=== PATIENT | male | born 1965 | race Caucasian/White ===

== ENCOUNTER 2019-08-18 15:57 | Inpatient (IN) | payer OTHER ==
[~2019-08-18] VITALS: Ht 185.4 cm; Wt 151.4 kg
[~2019-08-18 15:57] MED LIST: ACETAMINOPHEN325 M1 PO; ALPRAZOLAM ER1 MG PO; ALPRAZOLAM PO; AZITHROMYCIN 2250 MG PO; B COMPLEX-VITA1 EACH PO; KEFLEX500 MG PO; KRILL OIL500 MG PO; MULTIVITAMINS PO; NICOTINE TRANSDE7 MG TD; NORCO 5-325 TA1 EACH PO; PREDNISONE 20 M20 M1 PO; SOMA250 MG PO; TRAMADOL 50 MG50 MG PO; VITAMIN D-32000 UNIT PO
[2019-08-18 16:34] VITALS: BP 127/73
[2019-08-18 19:02] LABS: BASOPHILS 0.5 % (0.0-2.0); EOSINOPHILS 0.2 % (0.0-3.0); HEMATOCRIT 44.8 % (42.0-52.0); HEMOGLOBIN 14.8 gm/dL (14.0-18.0); LYMPHOCYTES 15.1 % (24.0-44.0); MCH 27.9 pg (26.0-34.0); MCV 84.6 fL (80.0-100.0); MONOCYTES 8.6 % (1.0-8.0); PLATELET COUNT 223 thou/uL (150-400); POLYS 75.6 % (36.0-66.0); RBC 5.29 mil/uL (4.50-6.00); RDW 14.3 % (10.5-14.5); WBC 14.5 thou/uL (4.0-11.0)
[2019-08-18 19:06] LABS: CALCIUM 9.1 mg/dL (8.5-10.1); POTASSIUM 3.4 mmol/L (3.5-5.1)
[2019-08-18 22:03] VITALS: BP 146/86
[2019-08-18 22:08] LABS: URINE BILIRUBIN NEGATIVE (Negative); URINE BLOOD NEGATIVE (Negative); URINE CLARITY CLEAR; URINE COLOR YELLOW; URINE GLUCOSE-RANDOM* NEGATIVE (Negative); URINE KETONES NEGATIVE (Negative); URINE LEUKOCYTES-REFLEX NEGATIVE (Negative); URINE NITRITE-REFLEX NEGATIVE (Negative); URINE PROTEIN (DIPSTICK) NEGATIVE (Negative); URINE UROBILINOGEN 0.2 E.U./dl (0.2-1.0)
[2019-08-18 22:31] VITALS: BP 125/77
[2019-08-18 23:23] VITALS: BP 122/89
[2019-08-19 04:36] VITALS: BP 147/86
--- NOTE | 2019-08-19 08:04 | NUR ---
PT ADMITTED AT ABOUT 2330 08/19. ALERT AND ORIENTED. VITALS STABLE. BLISTERS ON THE LE, AND GROIN REDNESS NOTED. ON ANTIBIOTIC FOR CELLULITIS. PT REPORTS HISTORY OF SLEEP APNEA. NOTED SUSTAINED RAPID HEART RATE >120, ASYMPTOMATIC AND RELATED TO SLEEP APNEA. DR THOMPSON NOTIFIED. NO ORDERS RECEIVED. INSTEAD RECOMMENDED TO CONTINUE MONITORING PT. HR MORE CONTROLLED WHILE PT IS AWAKE. MORPHINE PRN GIVEN FOR PAIN. WILL CONTINUE TO FOLLOW PLAN OF CARE.
[2019-08-19 08:20] VITALS: BP 122/74
--- NOTE | 2019-08-19 12:21 | NUR ---
ASSUMED CARE AT 0700, SHIFT ASSESSMENT DONE, MEDS GIVEN, VSS. REPORTED PAIN, PRN PAIN MEDS GIVEN. DR LOZADA CALLED ABOUT CONSULT. RECEIVING IV ANTIBIOTICS. WILL CONTINUE TO ASSESS AND ASSIST WITH ADLs NEEDED.
[2019-08-19 12:30] VITALS: BP 127/67
[2019-08-19] MEDS ORDERED: KLONOPIN1 MG PO (12:43)
[2019-08-19] MEDS ORDERED: TIZANIDINE HCL 22 M1 PO (12:44)
[2019-08-19] MEDS ORDERED: SERTRALINE HCL100 MG (12:44)
[2019-08-19] MEDS ORDERED: TRAZODONE 150150 M1 PO (12:45)
[2019-08-19] MEDS ORDERED: LIPITOR10 MG PO (12:45)
[2019-08-19 16:56] VITALS: BP 134/69
--- NOTE | 2019-08-19 18:29 | NUR ---
DR YEPEZ DID A BEDSIDE I&D, TOLERATED PROCEDURE WELL. UP IN THE CHAIR. GAUZE AND ABD DRESSING ON THE SITES, RIGHT GROIN AND THIGH. WILL CONTINUE TO ASSESS AND ASSIST WITH ADLs NEEDED.
[2019-08-19 19:41] VITALS: BP 122/73
[2019-08-20 04:09] VITALS: BP 125/52
--- NOTE | 2019-08-20 04:57 | NUR ---
ASSUMED PT CARE AT 1900. PT IS ALERT AND ORIENTED. FAMILY AT BEDSIDE. NO SIGN OF DISTRES NOTED IN PT. PT IS STABLE. ASSESSMENT COMPLETED AND DOCUMENTED. RIGHT GROIN SITE INTACT. DRESSING CHANGE DONE ON GROIN SITE. DOMONIQUE MED ADMINISTERED REQUESTED [place] PATIENT. SCHEDULED MEDS ADMINISTERED TO PT. NO SIGN OF DISTRESS NOTED. NO FURTHER NEEDS AT THIS TIME
[2019-08-20 04:58] LABS: CALCIUM 8.3 mg/dL (8.5-10.1); CREATININE 0.9 mg/dL (0.7-1.3); POTASSIUM 3.3 mmol/L (3.5-5.1)
[2019-08-20 05:42] LABS: HEMATOCRIT 39.8 % (42.0-52.0); HEMOGLOBIN 13.2 gm/dL (14.0-18.0); MCH 28.3 pg (26.0-34.0); MCHC 33.1 g/dL (28.0-37.0); MCV 85.4 fL (80.0-100.0); RBC 4.66 mil/uL (4.50-6.00); WBC 10.4 thou/uL (4.0-11.0)
[2019-08-20 07:49] VITALS: BP 112/68
--- NOTE | 2019-08-20 13:32 | H ---
[facility] [place] [address] HISTORY AND PHYSICAL Name: KELLY MUELLER Room #: 208-P [facility] IN M.R.#: [id number] Admission: 08/18/19 Attend Phys: Tapan Alford MD Discharge: Date of : 67 Report #: [id number] THIS REPORT FOR: //name// CC: Mitch Alford DATE OF SERVICE: 08/18/2019 CHIEF COMPLAINT: Pain and swelling in the right groin and thigh. HISTORY OF PRESENT ILLNESS: The patient is a 53-year-old gentleman who was admitted through the Emergency Room with pain, redness, and rash developing in the right groin, spreading to his right leg, right inner thigh. He had a temperature of 102 yesterday. His symptoms have been progressing over the course of 4 or 5 days. He tried an outpatient course of initially Diflucan followed by cephalexin without any improvement. PAST MEDICAL HISTORY: Osteoarthritis, chronic back pain with spasms, dyslipidemia morbid obesity, and chronic anxiety. PAST SURGICAL HISTORY: None. FAMILY HISTORY: Noncontributory. SOCIAL HISTORY: He is , lives with his at home. No chronic alcohol or tobacco use. ALLERGIES: None. MEDICATIONS: Tylenol, tramadol, multivitamin, vitamin D, clonazepam, Zoloft, trazodone, and tizanidine. REVIEW OF SYSTEMS: He denies headache, chest pain, shortness of breath, abdominal pain, nausea, vomiting, diarrhea, constipation, dysuria, or syncope. OBJECTIVE: VITAL SIGNS: Temperature 37.2, pulse 113, respirations 18, blood pressure 127/67, O2 sat 90-92% on room air. GENERAL: He is awake and alert, in no distress. HEAD AND NECK: Unremarkable. LUNGS: Clear. HEART: Regular. ABDOMEN: Obese, soft, normoactive bowel sounds. EXTREMITIES: No cyanosis, clubbing, or edema. He has some redness with erythema in the right inner thigh and an area similar on the right groin down towards the right scrotum. [address] [address] HISTORY AND PHYSICAL Name: KELLY MUELLER Room #: 208-P [facility] IN M.R.#: [id number] Admission: 08/18/19 Attend Phys: Tapan Alford MD Discharge: Date of : 67 Report #: [id number] NEUROLOGIC: Cranial nerves intact. Speech is fluent. Motor strength intact. LABORATORY DATA: White count was 14. Chemistry unremarkable. ASSESSMENT: 1. Cellulitis of the right groin, scrotum and inner thigh. 2. Chronic low back pain. 3. Chronic anxiety. PLAN: He has been treated with IV antibiotics, pending blood cultures and Infectious Disease opinion. <ELECTRONICALLY SIGNED> By: Mitch Pelletier MD 08/20/19 1332 1318 1327 Mitch Pelletier MD /ruth
--- NOTE | 2019-08-20 14:18 | NUR ---
Nutrition: pt admitted with Right groin cellulitis and abscess, right thigh cellulitis and abscess. Eating 100% of meals on regular diet. Able to order meals. Surgery and ID following. Protein needs/sources reviewed. Pt voices gradual weight gain over time. BMI 43 extreme class 3 obesity. Pt not interested in weight loss education at this time but RD available PRN. Place as low nutrition risk.
[2019-08-20 16:40] VITALS: BP 118/57
--- NOTE | 2019-08-20 19:32 | NUR ---
Received patient care around 0730. Patient AOX4. Patient resting on bed. AM medication given. Groin wound packed with gauze and redressed. Patient requesting PRN pain medicaiton before shower. Patient resting calmly in bed during shift report in the evening. Assessment as charted. Following POC. Passed on in report.
--- NOTE | 2019-08-20 20:52 | HC ---
[facility] [place] [address] CONSULTATION Name: KELLY MUELLER Room #: 208-P [facility] IN M.R.#: [id number] Admission: 08/18/19 Attend Phys: Tapan Alford MD Discharge: Date of : 67 Report #: [id number] THIS REPORT FOR: //name// CC: Mitch Alford DATE OF SERVICE: 08/19/2019 INFECTIOUS DISEASE CONSULTATION REASON FOR CONSULTATION: I was asked to evaluate concerning soft tissue infection and fever. HISTORY OF PRESENT ILLNESS: A 53-year-old presented to the Emergency Room yesterday with fever, chills, lower leg pain with erythematous lesions and pustule lesions. He has been dealing with intertrigo for the last several months. Over the last 4-5 days, he has had issues with pustules involving his legs and right pubic region. This has worsened and he presents for further evaluation. He denies any history of trauma. Denies any previous history of MRSA infections. He denies any history of diabetes. He is morbidly obese. He is a nonsmoker. He was diagnosed with aplastic anemia 25 years ago. This has all resolved. ALLERGIES: None known. MEDICATIONS: As noted on his MAR including hydrocodone and cephalexin. Now on vancomycin and fluconazole. PAST MEDICAL HISTORY: Mononucleosis, aplastic anemia, degenerative arthritis, clavicle fracture, anxiety, chronic back pain. FAMILY HISTORY: Noncontributory. SOCIAL HISTORY: Nonsmoker. Occasional alcohol use. REVIEW OF SYSTEMS: Denies any cardiopulmonary, GI or complaints. Full 10-point review was negative other than what has been described above. PHYSICAL EXAMINATION: VITAL SIGNS: He was afebrile and hemodynamically stable. GENERAL: He is alert and cooperative. He was morbidly obese. SKIN: With multiple furuncles of left finger, several in his right leg, a carbuncle involving the right medial thigh and right pubic region over the mons with associated cellulitis. Tender adenopathy. Groin intertrigo. No other lesions to the external genitalia. Perianal examination was normal. No other palpable adenopathy. [facility] [address] [place] [address] CONSULTATION Name: KELLY MUELLER Room #: 208-P [facility] IN M.R.#: [id number] Admission: 08/18/19 Attend Phys: Tapan Alford MD Discharge: Date of : 67 Report #: [id number] EYES: Without scleral icterus. MOUTH: Without mucositis. NECK: Supple, with no thyromegaly or mass. LUNGS: Clear. HEART: Regular, without murmur, gallop or rub. ABDOMEN: Soft, nontender, no hepatosplenomegaly or mass. EXTREMITIES: With no clubbing, cyanosis or edema. NEUROLOGIC: Cranial nerves intact. Strength in upper and lower extremities was normal. Sensation upper and lower extremities were normal. Mood was normal. LABORATORY STUDIES: Reviewed. Blood cultures are pending. Wound culture was obtained last night and is pending. CT scan of the abdomen and pelvis without definite abscess. IMPRESSION: A 53-year-old with multiple furuncles and a carbuncle involving the right thigh and pubic region. I am suspecting methicillin-resistant Staphylococcus infection, this is in the setting of morbid obesity. He has been dealing with a groin intertrigo for several months as well. Need to ensure no evidence of diabetes. I doubt such with a random glucose of 95. RECOMMENDATIONS: We will continue with vancomycin and fluconazole, topical antifungal to the groin region. I have General Surgery evaluate for incision and drainage of the abscess. Treat intertrigo with fluconazole and topical antifungal. Encourage weight loss diet. <ELECTRONICALLY SIGNED> By: Zohaib Alvarado MD 08/20/192051 [id number] Zohaib Alvarado MD /nt
[2019-08-20 21:06] VITALS: BP 135/37
[2019-08-21 04:00] VITALS: BP 124/61
--- NOTE | 2019-08-21 05:27 | NUR ---
ASSUMED PT CARE AT 1900. PT IS ALERT AND ORIENTED. VITAL SIGNS STABLE. ASSESSMENT COMPLETED AND CHARTED, SCHEDULED MEDS ADMINISTERED. WOUND DRESSING CHANGED. PAIN MED ADMINISTERED TO PT. DENIES ANY FURTHER NEEDS AT THIS TIME
[2019-08-21 07:33] VITALS: BP 143/58
[2019-08-21 15:44] VITALS: BP 121/72
--- NOTE | 2019-08-21 17:24 | NUR ---
PT ALERT AND ORIENTED TIMES FOUR. VSS, 96%RA. PT DENIES PAIN/SOA. DRESSSING TO RIGHT GROIN AND RIGHT THIGH DONE. PT TOLERATES MEDS AND MEALS. PT UP AB GUICHO WITH STEDY GAIT. PT PROGRESSING TOWRADS POC GOALS.
[2019-08-21 21:08] VITALS: BP 112/63
--- NOTE | 2019-08-22 04:05 | NUR ---
ASSUMED CARE AT 1900. PT ALERT AND ORIENTED. DENIES PAIN. REPORTS FEELING BETTER. SORENESS IN GROIN AND RIGHT THIGH, I&D SITES. ABDs CHANGED DUE TO MODERATE SATURATION WITH MILD SEROPURULENT DRAINAGE. VITALS OTHERWISE STABLE. CONTINUES WITH WITH ABX AND PRESCRIBED. NO FURTHER C/O. WILL CONTINUE TO FOLLOW PLAN OF CARE.
[2019-08-22 05:57] VITALS: BP 125/64
[2019-08-22 07:55] VITALS: BP 131/61
--- NOTE | 2019-08-22 10:49 | NUR ---
ASSUMED CARE AT 0700, SHIFT ASSESSMENT DONE, MEDS GIVEN, VSS. REPORTED PAIN 2/10, DOES NOT NEED ANY PAIN MED. DRESSING CHANGE PER ORDER. UP AD GUICHO, ROOM AIR. WILL CONTINUE TO ASSESS AND ASSIST WITH ADLs NEEDED.
[2019-08-22 15:50] VITALS: BP 139/84
[2019-08-22 19:42] VITALS: BP 135/60
--- NOTE | 2019-08-23 03:51 | NUR ---
PT ALERT AND ORIENTED. DENIES CHEST PAIN, SOB, OR NAUSEA. PT CONCERNED ABOUT PLAN OF CARE. CONCERNED ABOUT HIS DICAHRGE PLAN.CONTINUE WITH ABX. WILL CONTINUE TO MONITOR.
[2019-08-23 04:49] VITALS: BP 124/61
[2019-08-23 07:50] VITALS: BP 108/79
[2019-08-23 11:30] VITALS: BP 130/74
--- NOTE | 2019-08-23 15:06 | NUR ---
Chart reviewed and case discussed with the care team. Pt up ad sole and being instructed on dressing changes. Pt being switched to po atb. No cm interventions indicated. Pt dcing home today.
[2019-08-23 15:10] VITALS: BP 151/84
[2019-08-23] MEDS ORDERED: LINEZOLID600 MG PO (15:22)
[2019-08-23] MEDS ORDERED: DIFLUCAN150 MG PO (15:31)
[2019-08-23] MEDS ORDERED: SERTRALINE HCL100 MG PO (15:33)
--- NOTE | 2019-08-23 19:51 | NUR ---
RECEIVED PT'S CARE AT 0700; PT. RESTING WITH EYES CLOSED; AOX4; DURING ASSESSMENT NO C/O PAIN; PRN PAIN MEDICATION GIVEN WITH AM MEDICATIONS DUE TO DRESSING CHANGED; DRESSING CHANGED DURING THE MORNING & EVENING DUE TO EDUCATION PERFORMED TO SPOUSE; SPOUSE ABLE TO VOICE BACK LEARNING; AROUND 1400 DR. LOZADA & DR. YEPEZ AT THE BED SIDE; PER DR. LOZADA & DR. YEPEZ VERBAL PT. ABLE TO BE D/C TODAY 08/23/19 TO HOME WITH PO ANTIBIOTIC; DR. FINLEY NOTIFIED; PER DR. FINLEY VERBAL PT. WILL BE D/C TO HOME ON 08/23/19; AROUND 1800 NO D/C ORDERS; PHYSICIAN CALLED THROUGH ANSWERING SERVICE NO CALL BACK; PASSED ON REPORT; ASSESSMENT CHARGED; FOLLOWING POC; MONITOR; PASSED ON REPORT;
[2019-08-23 21:06] VITALS: BP 97/53
[2019-08-23 21:20] VITALS: BP 128/82
--- NOTE | 2019-08-24 03:23 | NUR ---
ASSUMED PT CARE AT 1900. VSS. PT A&0X4. PT WAS MEANT TO BE D/C STILL AWAITING D/C ORDERS. PT WOUND CARE COMPLETED BY DAY NURSE AROUND 6PM. PT RESTED WELL ALL NIGHT. NO COMPLAINTS OF DISCOMFORT. PT IS STABLE, TO BE D/C IN THE AM WHEN ORDERS ARE IN.
[2019-08-24 05:00] VITALS: BP 145/81
[2019-08-24 08:05] VITALS: BP 123/73
[2019-08-24 11:25] VITALS: BP 130/83
--- NOTE | 2019-08-24 11:41 | NUR ---
RECEIVED PT'S CARE AROUND 0700; AOX4; AWAKE ON BED; ASKING WHEN MIGHT BE D/C; NOT D/C ORDERS ON PLACE; DURING ASSESSMENT ST. NO PAIN; PAIN OVER R. GROIN AREA WHEN CHANGING PACKING; REFUSED PAIN MEDICATION; D/C ORDERS ON PLACE AROUND 1030; DR. AUSTIN CHANGE PO ANTIBIOTICS EARLY ON THE MORNING; NO NEW RX ON CHARGED; NOT ABLE TO CONTACT DR. AUSTIN ON PHONE NUMBER GIVEN BY ANSWERING ANSWER SERVICE; SEVERAL ATTEMPTS; AROUND NOON THROUGH ANSWERING SERVICE ABLE TO CONTACT DR. AUSTIN; VERBAL ORDERS GIVEN FOR NEW RX; DISCHARGED; PERFOMED; INFORMATION GIVEN TO PT; ASSESSMENT CHARGED; FOLLOWING POC;
[2019-08-24] MEDS ORDERED: KEFLEX500 M1 PO (12:31)
[2019-08-24 12:33] VITALS: BP 123/73
--- NOTE | 2019-08-26 10:14 | HC ---
[facility] [place] [address] CONSULTATION Name: KELLY MUELLER Room #: 208-P [facility] IN M.R.#: [id number] Admission: 08/18/19 Attend Phys: Tapan Alford MD Discharge: 08/24/19 Date of : 67 Report #: [id number] THIS REPORT FOR: //name// CC: Mitch Alford DATE OF SERVICE: 08/19/2019 CONSULTING PHYSICIAN: Dr. Love. REASON FOR CONSULTATION: 1. Right groin cellulitis and abscess. 2. Right thigh cellulitis and abscess. ASSESSMENT: 1. Right groin cellulitis and abscess. 2. Right thigh cellulitis and abscess. 3. Morbid obesity. RECOMMENDATIONS: 1. Thank you for the consultation. We will follow along. 2. Recommend incision and drainage of right groin abscess and right thigh abscess. There is fluctuance underneath the skin that is concerning for developing fluid collection. I do think he would benefit from incision and drainage. The right groin location is a very concerning location for the potential for a serious infection, so I think being aggressive with the drainage procedure is warranted. 3. The patient did request that we do this at bedside. I did discuss that we would attempt it at bedside; however, given the location of the right groin and the potential for it to become a very serious infection if it does get worse, we would have to go to the operating room for extensive drainage procedure and possibly debridement. He is in agreement with this. HISTORY OF PRESENT ILLNESS: The patient is a very pleasant 53-year-old gentleman who presented to the ER with right groin pain and right thigh pain. The patient endorsed fever. He reported that the redness and soreness started about 4 to 5 days before the time of admission. In the ER, a CT scan was performed. He was admitted to the medical team and Surgery team was consulted for evaluation. PAST MEDICAL HISTORY: 1. Osteoarthritis. 2. Chronic back pain with spasms. 3. Dyslipidemia. 4. Morbid obesity. 5. Chronic anxiety. [address] [address] CONSULTATION Name: KELLY MUELLER Room #: 208-[facility] IN M.R.#: [id number] Admission: 08/18/19 Attend Phys: Tapan Alford MD Discharge: 08/24/19 Date of : 67 Report #: [id number] PAST SURGICAL HISTORY: None. FAMILY HISTORY: Noncontributory. SOCIAL HISTORY: , lives with . No chronic alcohol or tobacco use. MEDICATIONS: Please see med rec. ALLERGIES: None. REVIEW OF SYSTEMS: CONSTITUTIONAL: No fever. No chills. HEENT: Denies blurring of vision, double vision, headaches, hearing loss, sinus drainage or sore throat. Denies blurring of vision, double vision, headaches, hearing loss, sinus drainage or sore throat. CARDIOVASCULAR: Denies chest pain, palpitations, orthopnea or paroxysmal nocturnal dyspnea. RESPIRATORY: Denies cough, wheezing, hemoptysis, or shortness of air. GASTROINTESTINAL: No nausea. No vomiting. No diarrhea. No Heartburn. No nausea. No vomiting. No diarrhea. No Heartburn. GENITOURINARY: Denies dysuria or hematuria or kidney stones. No urinary frequency, urgency or incontinence. Denies dysuria or hematuria or kidney stones. No urinary frequency, urgency or incontinence. MUSCULOSKELETAL: No joint pain. No muscle pain. NEUROLOGICAL: Denies tremor, stroke or seizure. Denies tremor, stroke or seizure. HEMATOLOGIC / LYMPHATICS: Denies easy bruising, easy bleeding or enlarged lymph nodes. ENDOCRINE: No heat or cold intolerance PSYCHIATRIC: Denies depression, anxiety, or schizophrenia. INTEGUMENTARY: See above and below. PHYSICAL EXAMINATION: VITAL SIGNS: Temperature is 37.2, pulse 113, respiratory rate 18, blood pressure 127/67, pulse ox 90%. GENERAL: No apparent distress, alert and oriented x3. HEENT: PERRLA, EOMI, MMM, NCAT. NECK: Supple. No LAD. CARDIOVASCULAR: Regular rhythm and rate. Hemodynamically stable. Normal capillary refill. Regular rhythm and rate. Hemodynamically stable. Normal capillary refill. PULMONARY: Nonlabored. Clear to auscultation bilaterally. ABDOMEN: Soft, nontender to palpation, no guarding, no rigidity, no rebound tenderness, no hernias. EXTREMITIES: Calves soft, nontender, no edema. [address] [address] CONSULTATION Name: KELLY MUELLER Room #: 208-P [facility] IN M.R.#: [id number] Admission: 08/18/19 Attend Phys: Tapan Alford MD Discharge: 08/24/19 Date of : 67 Report #: [id number] SKIN: Right groin has a large area of erythema. There is a large fluctuance on his groin crease that is the same groin crease that leads down into his scrotum. The scrotum is soft, nontender; no erythema. Right cephalad to the scrotum, there is an area of skin breakdown and blistering, consistent with worsening infection and possible skin necrosis. There is, on the right thigh, a separate area of circular erythema and fluctuance underneath. PSYCHIATRIC: Normal mood and affect Normal mood and affect. NEUROLOGICAL: Grossly intact. CN II-XII grossly intact. MUSCULOSKELETAL: 5/5 strength in upper extremities and lower extremities bilaterally. LYMPHATICS: No cervical, inguinal, or supraclavicular lymphadenopathy. LABORATORY DATA: - White blood count 14.5, hemoglobin 14.8, hematocrit 44.8, platelets 223. - Sodium 133, potassium 3.4, creatinine 1, lactic acid 0.9, calcium 9.1. IMAGING: CT of the abdomen and pelvis impression: 1. Cellulitis in the right upper scrotum and penis region near the right groin. No fluid collection. A few reactive lymph nodes. 2. No evidence of pelvic ascites or pelvic abscess. 3. Large simple hepatic cyst. Fatty liver. 4. Patchy bibasilar atelectasis and/or pneumonitis. <ELECTRONICALLY SIGNED> By: Charan Love MD 08/26/19 1014 1541 2317 Charan Love MD /nt
--- NOTE | 2019-08-27 12:55 | D ---
[facility] [place] [address] DISCHARGE SUMMARY Name: KELLY MUELLER Room #: 208-P [facility] IN M.R.#: [id number] Admission: 08/18/19 Attend Phys: Tapan Alford MD Discharge: 08/24/19 Date of : 67 Report #: [id number] THIS REPORT FOR: //name// CC: Mitch Alford DATE OF SERVICE: 08/24/2019 FINAL DIAGNOSES: 1. Abscess, right groin. 2. Cellulitis, right groin. 3. Obstructive sleep apnea. 4. Morbid obesity. HOSPITAL COURSE: The patient was admitted with pain and swelling in the right groin, was diagnosed with abscess type furuncle in the area. He was taken to the OR by Dr. Love and debrided. Please see that report. Dr. Alvarado managed IV antibiotics. Culture grew Staph aureus with some resistance pattern. He had no other interval complications and his home medications were continued. He was noted to be slightly hypoxic at night while asleep. He has a known outpatient recent diagnosis of obstructive sleep apnea and is in the process of obtaining CPAP equipment. He had no other interval complication. DISPOSITION: To be discharged to home with diet and activity as tolerated, resume all home medications plus Diflucan for 3 days, Zyvox for 3 days and follow up with Dr. Alvarado early next week. <ELECTRONICALLY SIGNED> By: Mitch Pelletier MD 08/27/19 1255 1246 1312 Mitch Pelletier MD /ruth
== END 2019-08-24 13:00 | disposition home or self-care (01) | DRG 580 ==
LOC: ER 15:57 → EROBS 20:41 → 2N 20:41 → ENTRNSPT 08-24 12:55 → 2N 08-24 13:00
PROVIDERS: Emergency Medicine; Internal Medicine Geriatric Medicine; ADMIT Internal Medicine
DX: L03.314 Cellulitis of groin (principal); L03.115 Cellulitis of right lower limb; Z68.41 Body mass index [BMI] 40.0-44.9, adult; L02.415 Cutaneous abscess of right lower limb; R65.10 Systemic inflammatory response syndrome (SIRS) of non-infectious origin without acute organ dysfunction; L02.214 Cutaneous abscess of groin; N49.2 Inflammatory disorders of scrotum; F41.9 Anxiety disorder, unspecified; M19.90 Unspecified osteoarthritis, unspecified site; E66.01 Morbid (severe) obesity due to excess calories; G89.29 Other chronic pain; M54.9 Dorsalgia, unspecified; E78.5 Hyperlipidemia, unspecified; K76.0 Fatty (change of) liver, not elsewhere classified; G47.33 Obstructive sleep apnea (adult) (pediatric)
CPT/HCPCS: 10081; 10194

== ENCOUNTER 2021-02-11 13:15 | Emergency (ER) | payer OTHER ==
[~2021-02-11] VITALS: Ht 185.4 cm; Wt 145.2 kg
[~2021-02-11 13:15] MED LIST changes: +DIFLUCAN150 MG PO; +KEFLEX500 M1 PO; +KLONOPIN1 MG PO; +LINEZOLID600 MG PO; +LIPITOR10 MG PO; +SERTRALINE HCL100 MG; +SERTRALINE HCL100 MG PO; +TIZANIDINE HCL 22 M1 PO; +TRAZODONE 150150 M1 PO
[2021-02-11] MEDS ORDERED: HYDROCODON-ACE1 EAC7 PO (14:16)
[2021-02-11 14:53] VITALS: BP 111/73
== END 2021-02-11 14:53 | disposition home or self-care (01) ==
LOC: ER 13:15
DX: M25.572 Pain in left ankle and joints of left foot (principal); M19.90 Unspecified osteoarthritis, unspecified site; Z79.899 Other long term (current) drug therapy; W18.30XA Fall on same level, unspecified, initial encounter; Y93.89 Activity, other specified; Y92.89 Other specified places as the place of occurrence of the external cause; Y99.9 Unspecified external cause status